=== PATIENT | female | born 1950 | race Caucasian/White ===

== ENCOUNTER 2024-06-19 20:11 | Emergency (ER) | payer SELFPAY ==
[~2024-06-19] VITALS: Ht 175.3 cm; Wt 68.0 kg
[2024-06-19 20:26] VITALS: BP 143/86; PULSE 76; RESP 16; TEMP 98.2; O2SAT 99
== END 2024-06-19 22:45 | disposition left against medical advice (07) ==
LOC: ER 20:11 → EDBD 20:11 → ER 22:45
DX: M25.522 Pain in left elbow (principal); Z53.21 Procedure and treatment not carried out due to patient leaving prior to being seen by health care provider